=== PATIENT | female | born 1985 | race Caucasian/White ===

== ENCOUNTER 2020-02-23 07:54 | Emergency (ER) | payer BC ==
[2020-02-23 08:22] VITALS: BP 149/71; PULSE 93
--- NOTE | 2020-02-23 10:35 | EDM.PDOC ---
ED HPI GENERAL MEDICAL PROBLEM - General Chief Complaint: Lower Extremity Injury/Pain Stated Complaint: RT LEG SWOLLEN Time Seen by Provider: 02/23/20 08:23 Source of Information: Reports: Patient, RN Notes Reviewed - History of Present Illness INITIAL COMMENTS - FREE TEXT/NARRATIVE: 34 yr old female with R lower leg swelling 2 to 3 days ago. Has some erythema, mild discomfort as well yesterday and today. No chest pain or difficulty breathing. No fever. Right Lower Leg Pain Score (Numeric/FACES): 5 - Related Data Allergies Allergy/AdvReac Type Severity Reaction Status Date / Time No Known Allergies Allergy Verified 02/23/20 08:22 Home Meds: Home Meds Acetaminophen [Tylenol] 650 mg PO Q4H PRN #50 tablet 12/21/13 [Rx] Ibuprofen [Motrin] 200 mg PO Q6H PRN #50 tablet 12/21/13 [Rx] Verapamil [Calan SR] 120 mg PO DAILY 07/03/14 [History] FLUoxetine HCl [Fluoxetine] 20 mg PO DAILY 02/23/20 [History] Levonorgestrel/Ethin.estradiol [Jolessa 0.15 mg-0.03 mg Tablet] 1 tab PO DAILY 02/23/20 [History] Rivaroxaban [Xarelto] 15 mg PO BID #42 tab 02/23/20 [Rx] SUMAtriptan succinate [Imitrex] 100 mg PO ASDIRECTED PRN 02/23/20 [History] Past Medical History Respiratory History: Reports: Asthma [employer] History: Reports: Neurological History: Reports: Migraines - Infectious Disease History Infectious Disease History: Reports: Chicken Pox - Past Surgical History Female Surgical History: Reports: Section Social & Family History - Tobacco Use Tobacco Use Status *Q: Never Tobacco User - Caffeine Use Caffeine Use: Reports: Energy Drinks - Recreational Drug Use Recreational Drug Use: No Review of Systems - Review of Systems Review Of Systems: See Below Constitutional: Denies: Chills, Fever Mouth/Throat: Reports: No Symptoms Respiratory: Denies: Shortness of Breath, Pleuritic Chest Pain, Cough Cardiovascular: Denies: Chest Pain, Palpitations GI/Abdominal: Denies: Abdominal Pain, Nausea, Vomiting Musculoskeletal: Reports: Leg Pain (mild) Skin: Reports: Erythema (RLE, small area), Other (no generalized rash) Neurological: Reports: No Symptoms ED EXAM, GENERAL - Physical Exam Exam: See Below General Appearance: Alert, No Apparent Distress Head: Atraumatic Neck: Supple Respiratory/Chest: No Respiratory Distress, Lungs Clear, Normal Breath Sounds Cardiovascular: Regular Rate, Rhythm GI/Abdominal: Soft Extremities: Redness (localized area of erythema RLE just below the knee, mild localized tenderness, RLE mildly swollen, no post calf tenderness, mild R post knee tenderness) Neurological: Alert, Oriented, No Motor/Sensory Deficits Skin Exam: Warm, Dry, Normal Color Course - Vital Signs Last Recorded V/S: Last Vital Signs Temp 97.9 F 02/23/20 08:18 Pulse 93 02/23/20 08:18 Resp 16 02/23/20 08:18 BP 149/71 H 02/23/20 08:18 Pulse Ox 97 02/23/20 08:18 - Re-Assessments/Exams Free Text/Narrative Re-Assessment/Exam: 02/26/20 10:38 US shows localized superfiscial thrombosis RLE, deep veins not well visualized, see report for details. With DVT not ruled out and concern for progression have started on xarelto. Risks, benefits discussed with patient. She is in agreement with that plan. Departure - Departure Time of Disposition: 10:28 Disposition: Home, Self-Care 01 Condition: Fair Clinical Impression: Acute superficial venous thrombosis of right lower extremity - Discharge Information Prescriptions: Rivaroxaban [Xarelto] 15 mg PO BID #42 tab Instructions: Venous Thromboembolism Prevention Referrals: Carine Fernandes MD [Primary Care Provider] - Forms: ED Department Discharge Additional Instructions: Moist heat to area of inflamation right lower leg several times daily. Begin xarelto blood thinner 15 mg twice daily for 21 days. Prescription has been sent the [facility]. Your dosage after 21 days will change to 20 mg daily. Elevate your R leg multiple times a day as time and opportunity allows. See your regular medical provider in 7 to 10 days for recheck. Return to ED as needed if symptoms worsening in any way. Sepsis Event Note (ED) - Evaluation Sepsis Screening Result: No Definite Risk
--- NOTE | 2020-02-23 10:46 | US ---
"PROCEDURE INFORMATION: Exam: US Duplex Right Lower Extremity Veins, Limited Exam date and time: 02/23/2020 8:51 AM Age: 34 years old Clinical indication: Pain; Leg, lower; Right TECHNIQUE: Imaging protocol: Real-time Duplex ultrasound of the Right Lower Extremity with 2-D cherry scale, color Doppler flow and spectral waveform analysis with image documentation. Limited exam was focused on the right lower extremity veins. COMPARISON: No relevant prior studies available. FINDINGS: Right deep veins: Unremarkable. The common femoral, femoral, proximal profunda femoral and popliteal veins are patent without thrombus. Normal Doppler waveforms. Normal compressibility and/or augmentation response. There is very minimal flow in right calf veins. Power Doppler images were used to help locate the calf veins, and there are areas with no flow making it difficult to exclude partial occlusion of segmental portions of calf veins Right superficial veins: Saphenofemoral junction is patent without thrombus. There are numerous superficial varices in the popliteal fossa and the anterolateral calf in the subcutaneous fat which are noncompressible and occluded consistent with superficial thrombophlebitis. Thrombus in these vessels is predominantly hypoechoic suggesting acute component of superficial venous thrombus, although there are multiple intermingled foci of increased echogenicity suggesting a component of chronic SVT as well. The patient had severe tenderness to probe pressure in the popliteal fossa and anterolateral calf. Soft tissues: No soft tissue fluid collection. IMPRESSION: 1. Multiple superficial varices in the popliteal fossa and anterolateral calf which are occluded, with predominantly acute superficial venous thrombus, although a component of chronic SVT is also likely present. The patient was focally tender over these regions. ANGUS GALLEGOS | Final Radiology Report CONFIDENTIALITY STATEMENT This report is intended only for use by the referring physician, and only in accordance with law. If you received this in error, call [phone]. Page 2 of 2 2. Very minimal flow in the right calf veins, making it difficult to exclude partial occlusion. 3. No sonographic evidence of deep venous thrombosis in the right common femoral, femoral, profunda femoral, and popliteal veins. Thank you for allowing us to participate in the care of your patient. Dictated and Authenticated by: Mellisa Vieira MD 02/23/2020 10:54 AM Central Time ([place] & [place]) [facility]ENTER[facility]"
== END 2020-02-23 10:58 | disposition home or self-care (01) ==
LOC: JD.ED 07:54
DX: I82.431 Acute embolism and thrombosis of right popliteal vein (principal); I82.461 Acute embolism and thrombosis of right calf muscular vein; J45.909 Unspecified asthma, uncomplicated; Z79.01 Long term (current) use of anticoagulants; Z79.899 Other long term (current) drug therapy
CPT/HCPCS: 93971-26-RT; 93971-RT; 99283; 99283-25